=== PATIENT | male | born 1960 | race Two or more races ===

== ENCOUNTER 2024-12-27 02:56 | Emergency (ER) | payer MEDICAID ==
[~2024-12-27] VITALS: Ht 162.6 cm; Wt 72.0 kg
[2024-12-27 03:45] VITALS: PULSE 77; RESP 18; TEMP 97.8; O2SAT 95
[2024-12-27 03:52] LABS: Hematocrit 47.1 % (41.0-53.0); Hemoglobin 15.6 g/dL (13.5-17.5); Mean Corpuscular Hemoglobin 31.5 pg (28.0-32.0); Mean Corpuscular Volume 95.3 fL (80.0-100.0); Platelet Count (auto) 232 10^3/uL (140-450); Red Blood Cells 4.94 10^6/uL (4.5-5.90); Red Cell Distribution Width 15.8 % (11.8-14.3); White Blood Cell 8.4 10^3/uL (4.4-10.8)
[2024-12-27 04:01] LABS: Alanine Aminotransferase 16 U/L (7-40); Anion Gap 4 (5-15); Aspartate Aminotransferase 15 U/L (13-40); BUN/Creatinine Ratio 13.7 (10.0-20.0); Blood Urea Nitrogen 21 mg/dL (9-23); Calcium 10.1 mg/dL (8.7-10.4); Carbon Dioxide 29 mmol/L (20-31); Chloride 106 mmol/L (98-107); Glucose 104 mg/dL (74-106); Potassium 4.6 mmol/L (3.5-5.1); Sodium 139 mmol/L (136-145); Total Protein 7.1 g/dL (5.7-8.2)
[2024-12-27 04:02] LABS: Albumin 4.1 g/dL (3.2-4.8); Bilirubin, Total 0.4 mg/dL (0.2-1.0)
[2024-12-27 04:08] LABS: Alkaline Phosphatase 139 U/L (46-116)
--- NOTE | 2024-12-27 04:15 | DVH ---
Exam: CT CT AB PEL WO CON-NO ORAL OR IV History: llq pain Comparison Study: None Technique: Multidetector spiral CT of the abdomen and pelvis was performed from lung bases to pubic s ymphysis. Imaging was performed without intravenous contrast. Coronal and sagittal multiplanar reform ats were obtained from the axial data set by the technologist. Radiation Dose : 1. Abdomen/Pelvis: CTDIvol 12.7 mGy, DLP 670.98 mGy*cm. Findings: Evaluation of vasculature and solid organs is limited due to lack of intravenous contrast use. Lung Bases: Lung bases are clear. Visualized portions of the heart and pericardium are unremarkable. Liver: The liver is normal in size. No focal lesions. Gallbladder and Biliary Tree: Gallstones. No intrahepatic or extrahepatic biliary ductal dilatation. Spleen: Unremarkable Pancreas: The pancreas is grossly unremarkable. Adrenal Glands: Unremarkable Kidneys: Punctate nonobstructing right intrarenal calculus. Left renal atrophy. Nonobstructive left intrarenal calculi. Multiple bilateral renal cysts measuring up to 3.6 cm in the lower pole of the l eft kidney. Bilateral perinephric fat stranding. GI tract: The stomach is grossly normal in appearance. No evidence of small bowel wall thickening or abnormal dilatation to suggest bowel obstruction. Colonic diverticulosis without acute diverticulitis . The appendix is not visualized, however no inflammatory changes in the right lower quadrant to sugg est acute appendicitis. Peritoneum/mesentery/retroperitoneum. There is a fat containing mass in the left lower quadrant measu ring 2.6 by 1.9 cm with peripheral soft tissue density, adjacent to the sigmoid colon. No evidence of free intraperitoneal air. No ascites. No evidence of suspicious lymphadenopathy. Abdominal Wall: Fat containing umbilical hernia. Vasculature: The visualized abdominal aorta is normal in size and caliber. Evaluation of abdominal a nd pelvic vessels is limited due to lack of intravenous contrast. Urinary Bladder: Grossly unremarkable for degree of distention. Pelvic Organs: Unremarkable Musculoskeletal: No aggressive focal bony lesions, acute fractures or dislocation. Age indeterminate left 8th rib fracture. IMPRESSION: 1. 2.6 cm fat containing mass in the lateral left lower quadrant adjacent to the sigmoid colon most s uggestive of epiploic appendagitis. 2. Colonic diverticulosis without acute diverticulitis. 3. Bilateral nonobstructive intrarenal calculi. Bilateral perinephric fat stranding. 4. Gallstones.
[2024-12-27 04:26] LABS: Band Neutrophils % (manual) 0; Basophils % (manual) 0 (0.0-2.0); Blast Cells 0; Metamyelocytes % 0; Myelocytes % 0; Promyelocytes % 0; Reactive Lymphocytes 0
--- NOTE | 2024-12-27 04:45 | ED.PDOC ---
History of Present Illness HPI Comments 64 y/o M with history of COPD, HLD, and HTN, BIBA c/o left lower lateral abdominal pain for the last 4 days associated with constipation. Patient states he underwent surgery to remove a venous thrombosis in February 2024. This apparently resulted in an abdominal hernia in the left lower lateral abdominal area. Patient states his last bowel movement was 2 days ago. He denies taking any pain medications or medication for constipation. Denies any nausea, vomiting, urinary symptoms, fever, chills, or other associated symptoms. Chief Complaint: Abdominal Pain Time Seen by MD: 03:20 Reviewed Notes: Nurses Notes, Drum Barker Operator Notes, Medications, Allergies Allergies: Coded Allergies: NO KNOWN ALLERGIES (Unverified , 12/27/24) Home Meds Active Scripts Acetaminophen (Tylenol Extra Strength) 500 Mg Tab, 1000 MG PO Q6HP PRN, #30 TAB prn pain Prov:EULALIA CARDONA MD 12/27/24 Polyethylene Glycol 3350 (Goodsense Clearlax) 17 Gm/Scoop Pow, 17 GM PO DAILY PRN, #1 BOTTLE 17g in 240 mL water po daily prn constipation Prov:EULALIA CARDONA MD 12/27/24 Information Source: Patient Mode of Arrival: EMS Severity: Moderate Timing: Days Duration: Since onset Prehospital treatment: 12 Lead EKG, 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 Moist mucous membranes.) Neck: Full Range of Motion, Normal Inspection Respiratory: Lungs Clear, No Accessory Muscle Use, No Respiratory Distress, Normal Breath Sounds Cardiovascular: No Edema, No JVD, Regular Rate/Rhythm Breast Exam: Deferred Gastrointestinal: Mass (Left lower lateral abdominal wall hernia which is soft, mildly tender, not reducible. No overlying discoloration.), Soft, Tenderness Genitalia: Deferred Pelvic: Deferred Rectal: Deferred Extremities: Normal inspection, Normal range of motion, Non-tender, No pedal edema Neurologic: Alert (Oriented x4), Normal Affect, Normal Mood, Other (Ambulatory) Cerebellar Function: NOT DONE Reflexes: NOT DONE Skin: Dry, Normal Color, Warm Lymphatic: NOT DONE Was a procedure done? Was a procedure done?: No Differential Dx Considerations may include: Diverticular disease, colitis, hernia, nephrolithiasis, UTI/pyelonephritis, among others X-Ray, Labs, Meds, VS Vital Signs Date Time Temp Pulse Resp B/P (MAP) Pulse Ox O2 Delivery O2 Flow Rate FiO2 12/27/24 05:10 77 18 138/74 12/27/24 02:56 97.9 80 18 140/75 (96) 93 97.9 Lab Test 12/27/24 05:00 12/27/24 03:36 Range/Units Urine Color Light-yellow Yellow Urine Clarity Clear Clear Urine pH 5.5 5.0-9.0 Urine Specific [place] 1.015 1.001-1.035 Urine Protein Negative Negative Urine Ketones Negative Negative Urine Blood Negative Negative /uL Urine Nitrite Negative Negative Urine Bilirubin Negative Negative Urine Urobilinogen Normal Negative mg/dL Urine Leukocyte Esterase Negative Negative /uL Urine RBC 1 0 - 3 /hpf Urine Microscopic WBC < 1 0-3 /HPF Urine Squamous Epithelial Cells None seen <5 /hpf Urine Bacteria None seen None Seen /hpf Urine Glucose Normal Normal mg/dL White Blood Count 8.4 4.4-10.8 10^3/uL Red Blood Count 4.94 4.5-5.90 10^6/uL Hemoglobin 15.6 13.5-17.5 g/dL Hematocrit 47.1 41.0-53.0 % Mean Corpuscular Volume 95.3 80.0-100.0 fL Mean Corpuscular Hemoglobin 31.5 28.0-32.0 pg Mean Corpuscular Hemoglobin Concent 33.0 32.0-36.0 g/dL Red Cell Distribution Width 15.8 H 11.8-14.3 % Platelet Count 232 140-450 10^3/uL Mean Platelet Volume 8.7 6.9-10.8 fL Neutrophils (%) (Auto) 37.0-80.0 % Lymphocytes (%) (Auto) 10.0-50.0 % Monocytes (%) (Auto) 0.0-12.0 % Basophils (%) (Auto) 0.0-2.0 % Neutrophils # (Auto) 1.6-8.6 10 ^3/uL Lymphocytes # (Auto) 0.4-5.4 10 ^3/uL Monocytes # (Auto) 0-1.3 10 ^3/uL Differential Total Cells Counted 100.0 100 Neutrophils % (Manual) 52 37.0-80.0 Band Neutrophils % (Manual) 0 Lymphocytes % (Manual) 27 10.0-50.0 Monocytes % (Manual) 5 0-12 Eosinophils % (Manual) 16 H 0-7 Basophils % (Manual) 0 0.0-2.0 Metamyelocytes % (manual) 0 Myelocytes % (Manual) 0 Promyelocytes % (Manual) 0 Blast Cells % (Manual) 0 Reactive Lymphocytes 0 Platelet Estimate Adequate Sodium Level 139 136-145 mmol/L Potassium Level 4.6 3.5-5.1 mmol/L Chloride Level 106 98-107 mmol/L Carbon Dioxide Level 29 20-31 mmol/L Anion Gap 4 L 5-15 Blood Urea Nitrogen 21 9-23 mg/dL Creatinine 1.53 H 0.700-1.30 mg/dL Glomerular Filtration Rate Calc 51 >90 mL/min BUN/Creatinine Ratio 13.7 10.0-20.0 Serum Glucose 104 74-106 mg/dL Lactic Acid Level 0.7 0.4-2.0 mmol/L Calcium Level 10.1 8.7-10.4 mg/dL Total Bilirubin 0.4 0.2-1.0 mg/dL Aspartate Amino Transferase (AST) 15 13-40 U/L Alanine Aminotransferase (ALT) 16 7-40 U/L Alkaline Phosphatase 139 H 46-116 U/L Total Protein 7.1 5.7-8.2 g/dL Albumin 4.1 3.2-4.8 g/dL Current Medications Medications (Trade) Dose Ordered Sig/Ham Route Start Time Stop Time Status Last Admin Morphine Sulfate 2 mg ONCE ONCE IV 12/27/24 05:00 12/27/24 05:01 DC 12/27/24 05:10 Ondansetron HCl (Zofran) 4 mg ONCE ONCE IV 12/27/24 05:00 12/27/24 05:01 DC 12/27/24 05:10 [facility] [id number] [place] [id number] Ph: [phone] DIAGNOSTIC IMAGING Diagnostic Imaging Report : [id number] Signed PATIENT: ELIZABETH WILKES ACCT: [id number] UNIT: [id number] : 1960 LOC: ER ROOM / BED: / AGE / SEX: 64 / M ADM STATUS: REG ER SERVICE 0321 ORDERING PHYSICIAN: EULALIA CARDONA MD PROCEDURE(s): ABPL - CT AB PEL WO CON-NO ORAL OR IV REASON: llq pain ORDER NUMBER(s): [id number], ACCESSION NUMBER(s): [id number] Exam: CT CT AB PEL WO CON-NO ORAL OR IV History: llq pain Comparison Study: None Technique: Multidetector spiral CT of the abdomen and pelvis was performed from lung bases to pubic symphysis. Imaging was performed without intravenous contrast. Coronal and sagittal multiplanar reformats were obtained from the axial data set by the technologist. Radiation Dose : 1. Abdomen/Pelvis: CTDIvol 12.7 mGy, DLP 670.98 mGy*cm. Findings: Evaluation of vasculature and solid organs is limited due to lack of intravenous contrast use. Lung Bases: Lung bases are clear. Visualized portions of the heart and pericardium are unremarkable. Liver: The liver is normal in size. No focal lesions. Gallbladder and Biliary Tree: Gallstones. No intrahepatic or extrahepatic biliary ductal dilatation. Spleen: Unremarkable Pancreas: The pancreas is grossly unremarkable. Adrenal Glands: Unremarkable Kidneys: Punctate nonobstructing right intrarenal calculus. Left renal atrophy. Nonobstructive left intrarenal calculi. Multiple bilateral renal cysts measuring up to 3.6 cm in the lower pole of the left kidney. Bilateral perinephric fat stranding. GI tract: The stomach is grossly normal in appearance. No evidence of small bowel wall thickening or abnormal dilatation to suggest bowel obstruction. Colonic diverticulosis without acute diverticulitis. The appendix is not visualized, however no inflammatory changes in the right lower quadrant to suggest acute appendicitis. Peritoneum/mesentery/retroperitoneum. There is a fat containing mass in the left lower quadrant measuring 2.6 by 1.9 cm with peripheral soft tissue density, adjacent to the sigmoid colon. No evidence of free intraperitoneal air. No ascites. No evidence of suspicious lymphadenopathy. Abdominal Wall: Fat containing umbilical hernia. Vasculature: The visualized abdominal aorta is normal in size and caliber. Evaluation of abdominal and pelvic vessels is limited due to lack of intravenous contrast. Urinary Bladder: Grossly unremarkable for degree of distention. Pelvic Organs: Unremarkable Musculoskeletal: No aggressive focal bony lesions, acute fractures or dislocation. Age indeterminate left 8th rib fracture. IMPRESSION: 1. 2.6 cm fat containing mass in the lateral left lower quadrant adjacent to the sigmoid colon most suggestive of epiploic appendagitis. 2. Colonic diverticulosis without acute diverticulitis. 3. Bilateral nonobstructive intrarenal calculi. Bilateral perinephric fat stranding. 4. Gallstones. ATED BY: MICHAEL LEW MD DICTATED DATE/TIME: 12/27/24410 SIGNED BY: MICHAEL LEW MD SIGNED DATE/TIME: 12/27/24410 CC: X-Ray, Labs, Meds, VS Comment 64-year-old male with a history of COPD, hypertension, dyslipidemia and VTE brought in by EMS from home complaining of left lower quadrant abdominal pain Vitals remarkable for oxygen saturation 93% on room air Exam remarkable for left lower lateral abdominal wall hernia with mild tenderness Rhythm strip independently interpreted by me: Sinus rhythm, rate 80, no ectopy. CT abdomen and pelvis IMPRESSION: 1. 2.6 cm fat containing mass in the lateral left lower quadrant adjacent to the sigmoid colon most suggestive of epiploic appendagitis. 2. Colonic diverticulosis without acute diverticulitis. 3. Bilateral nonobstructive intrarenal calculi. Bilateral perinephric fat stranding. 4. Gallstones. CBC unremarkable, metabolic panel remarkable for creatinine 1.53, lactate normal, UA negative Patient treated with the following in the ED: Morphine 4 mg IV, Zofran 4 mg IV, magnesium citrate 150 mL p.o. On re-evaluation, patient states pain has improved. Vitals were stable. Repeat abdominal exam was benign. Patient appears stable for discharge with close outpatient follow-up with his primary physician. Rx MiraLax, Tylenol, Bentyl Time of 1ST Reevaluation: 03:50 Reevaluation 1ST: Unchanged Time of 2ND Reevaluation: 04:59 Reevaluation 2ND: Improved Patient Education/Counseling: Diagnosis, Treatment Family Education/Counseling: Diagnosis, Treatment Departure 1 Departure Time of Disposition: 05:00 Impression: Primary Impression: Abdominal hernia Qualified Codes: K45.8 - Other specified abdominal hernia without obstruction or gangrene Additional Impressions: Epiploic appendagitis Constipation Qualified Codes: K59.00 - Constipation, unspecified Disposition: HOME / SELF CARE / HOMELESS Condition: Stable Additional Instructions: Your blood and urine tests were unremarkable. Your CT scan showed a condition called epiploic appendagitis. This is usually benign and will resolve on its own. I have prescribed medication to treat your symptoms. Follow-up with your primary doctor in 1-2 days. Return to ER for persistent or worsening symptoms. [place] [address] Ph: [phone] DIAGNOSTIC IMAGING Diagnostic Imaging Report : [id number] Signed PATIENT: ELIZABETH WILKES ACCT: [id number] UNIT: [id number] : 1960 LOC: ER ROOM / BED: / AGE / SEX: 64 / M ADM STATUS: REG ER SERVICE 0321 ORDERING PHYSICIAN: EULALIA CARDONA MD PROCEDURE(s): ABPL - CT AB PEL WO CON-NO ORAL OR IV REASON: llq pain ORDER NUMBER(s): [id number], ACCESSION NUMBER(s): [id number] Exam: CT CT AB PEL WO CON-NO ORAL OR IV History: llq pain Comparison Study: None Technique: Multidetector spiral CT of the abdomen and pelvis was performed from lung bases to pubic symphysis. Imaging was performed without intravenous contrast. Coronal and sagittal multiplanar reformats were obtained from the axial data set by the technologist. Radiation Dose : 1. Abdomen/Pelvis: CTDIvol 12.7 mGy, DLP 670.98 mGy*cm. Findings: Evaluation of vasculature and solid organs is limited due to lack of intravenous contrast use. Lung Bases: Lung bases are clear. Visualized portions of the heart and pericardium are unremarkable. Liver: The liver is normal in size. No focal lesions. Gallbladder and Biliary Tree: Gallstones. No intrahepatic or extrahepatic biliary ductal dilatation. Spleen: Unremarkable Pancreas: The pancreas is grossly unremarkable. Adrenal Glands: Unremarkable Kidneys: Punctate nonobstructing right intrarenal calculus. Left renal atrophy. Nonobstructive left intrarenal calculi. Multiple bilateral renal cysts measuring up to 3.6 cm in the lower pole of the left kidney. Bilateral perinephric fat stranding. GI tract: The stomach is grossly normal in appearance. No evidence of small bowel wall thickening or abnormal dilatation to suggest bowel obstruction. Colonic diverticulosis without acute diverticulitis. The appendix is not visualized, however no inflammatory changes in the right lower quadrant to suggest acute appendicitis. Peritoneum/mesentery/retroperitoneum. There is a fat containing mass in the left lower quadrant measuring 2.6 by 1.9 cm with peripheral soft tissue density, adjacent to the sigmoid colon. No evidence of free intraperitoneal air. No ascites. No evidence of suspicious lymphadenopathy. Abdominal Wall: Fat containing umbilical hernia. Vasculature: The visualized abdominal aorta is normal in size and caliber. Evaluation of abdominal and pelvic vessels is limited due to lack of intravenous contrast. Urinary Bladder: Grossly unremarkable for degree of distention. Pelvic Organs: Unremarkable Musculoskeletal: No aggressive focal bony lesions, acute fractures or dislocation. Age indeterminate left 8th rib fracture. IMPRESSION: 1. 2.6 cm fat containing mass in the lateral left lower quadrant adjacent to the sigmoid colon most suggestive of epiploic appendagitis. 2. Colonic diverticulosis without acute diverticulitis. 3. Bilateral nonobstructive intrarenal calculi. Bilateral perinephric fat stranding. 4. Gallstones. e-Prescriptions Dicyclomine Hcl (BENTYL CAPSULE) 10 Mg Cp 2 CAP PO Q6HP PRN, #30 CAP 11 Refills Prov: EULALIA CARDONA MD 12/27/24 Acetaminophen (Tylenol Extra Strength) 500 Mg Tab 1000 MG PO Q6HP PRN, #30 TAB prn pain Prov: EULALIA CARDONA MD 12/27/24 Polyethylene Glycol 3350 (Goodsense Clearlax) 17 Gm/Scoop Pow 17 GM PO DAILY PRN, #1 BOTTLE 17g in 240 mL water po daily prn constipation Prov: EULALIA CARDONA MD 12/27/24 Discharged With: Relative Critical Care Note Critical Care Time?: No Stability Stability form required: No Heart Score Heart Score: Heart Score Response (Comments) Value History N/A 0 EKG N/A 0 Age N/A 0 Risk Factors N/A 0 Troponin N/A 0 Total 0 I personally scribed for EULALIA CARDONA MD ([email or web address]) on 12/27/24 at 04:45. Electronically submitted by Francisco Spivey ([email or web address]). EULALIA CARDONA MD December 27, 2024 04:45
[2024-12-27 05:06] LABS: Urine Bacteria None Seen /hpf (None Seen)
[2024-12-27] MEDS ORDERED: ACET-1304 PO (05:08)
[2024-12-27] MEDS ORDERED: POLYPOW59 PO (05:08)
[2024-12-27] MEDS: ONDANSETRON HCL 4 MG/2 ML VIAL IV ONE (05:10)
[2024-12-27] MEDS: MORPHINE SULFATE INJ 2 MG/ml SYRG IV ONE (05:10)
[2024-12-27 05:25] LABS: Urine Blood Negative /uL (Negative); Urine Clarity Clear (Clear); Urine Color Light-Yellow (Yellow); Urine Protein, UAD Negative (Negative); Urine Specific Gravity 1.015 (1.001-1.035); Urine Squamous Epithelial Cell None Seen /hpf (<5); Urine Urobilinogen Normal (Negative); Urine WBC < 1 /HPF (0-3); Urine pH 5.5 (5.0-9.0)
[2024-12-27 05:28] LABS: Eosinophils % (manual) 16 (0-7); Lymphocytes % (manual) 27 (10.0-50.0); Monocytes % (manual) 5 (0-12)
[2024-12-27 05:29] LABS: Platelet Estimate Adequate
[2024-12-27 06:00] VITALS: BP 115/62; PULSE 67; RESP 14; O2SAT 94
[2024-12-27] MEDS ORDERED: DICY10CA PO (06:03)
[2024-12-27] MEDS: MAGNESIUM CITRATE SOLUTION 300 ML BTL PO ONE (06:07)
== END 2024-12-27 07:23 | disposition home or self-care (01) ==
LOC: EDBD 02:56 → ER 02:56
DX: K46.9 Unspecified abdominal hernia without obstruction or gangrene (principal); K63.89 Other specified diseases of intestine; K59.00 Constipation, unspecified; J44.9 Chronic obstructive pulmonary disease, unspecified; E78.5 Hyperlipidemia, unspecified; I10 Essential (primary) hypertension
CPT/HCPCS: 36415; 74176; 80053; 81001; 83605; 85007; 85027; 87040; 96374; 96375; 99285; J2270; J2405